=== PATIENT | male | born 1995 | race Caucasian/White ===

== ENCOUNTER 2019-12-26 22:22 | Emergency (ER) | payer OTHER, SELFPAY ==
[2019-12-26 22:48] VITALS: BP 111/84; PULSE 89; RESP 22; TEMP 36.5; O2SAT 100
--- NOTE | 2019-12-26 22:55 | PC.NURSE ---
Patient uncooperative in triage. Patient was attempting to get blood drawn, stating You need to get this out of my arm, I need to throw up and go to the bathroom! Patient moving and pulled needle out of arm.
[2019-12-26 23:13] LABS: Basophils Absolute Auto 0.1 K/mm3 (0.0-0.1); Basophils Percent Auto 0.8 % (0.2-1.2); Eosinophils Absolute Auto 0.3 K/mm3 (0-0.3); Eosinophils Percent Auto 1.8 % (0-4.4); Hematocrit 48.9 % (42.0-52.0); Hemoglobin 16.9 g/dL (14.0-18.0); Immature Granulocyte Absolute 0.22 K/mm3 (0.00-0.031); Immature Granulocyte Percent A 1.3 % (0-0.5); Lymphocytes Absolute Auto 2.72 K/mm3 (0.9-3.2); Mean Corpuscular HGB Conc 34.6 g/dl (32-36); Mean Corpuscular Hemoglobin 30.1 pg (26-34); Mean Corpuscular Volume 87.2 fl (80-100); Mean Platelet Volume 10.1 fl (7.4-10.4); Monocytes Absolute Auto 0.8 K/mm3 (0.1-0.6); Monocytes Percent Auto 4.7 % (2.6-8.5); Neutrophils Absolute Auto 12.8 K/mm3 (1.3-6.7); Neutrophils Percent Auto 75.4 % (45.5-73.1); Platelet Count Result 338 k/mm3 (150-375); Red Blood Count 5.61 M/mm3 (4.6-6.20); Red Cell Distribution Width 12.3 % (11.5-14.5)
[2019-12-26 23:23] LABS: Alanine Aminotransferase 43 U/L (4-50); Albumin Level 5.5 g/dL (3.5-5.1); Alkaline Phosphatase 112 U/L (38-126); Anion Gap 16 mmol/L (8-16); Aspartate Amino Transferase 33 U/L (17-59); Bilirubin,Total 0.9 mg/dL (0.2-1.3); Blood Urea Nitrogen 16 mg/dL (9-20); Calcium 10.6 mg/dL (8.4-10.2); Carbon Dioxide 23 mmol/L (22-30); Chloride 99 mmol/L (98-107); Estimated Glomerular Filt Rate > 60; Glucose 183 mg/dL (75-110); Lipase 53 U/L (23-300); Potassium 3.9 mmol/L (3.4-5.0); Sodium 138 mmol/L (137-145)
[2019-12-27 00:51] LABS: Add Urine Microscopic? YES; Appearance Urine Clear (Clear); Bacteria Urine Trace /hpf; Bilirubin Urine Negative (Negative); Blood Urine Negative (Negative); Color Urine Yellow (Yellow); Glucose Urine UA Negative (Negative); Ketones Urine Negative (Negative); Leukocyte Esterase Ur Negative LEU/UL (Negative); Mucus Urine Heavy /lpf; Nitrate Urine Negative (Negative); Protein Urine 1+ mg/dL (Negative); RBC Urine 0-2 /hpf (0-2); Urobilinogen Urine Negative mg/dL (<2.0); WBC Urine 0-3 /hpf
--- NOTE | 2019-12-27 00:57 | ED.NAVMDI ---
HPI - Nausea/Vomiting/Diarrhea General Chief complaint: Nausea/Vomiting/Diarrhea Stated complaint: vomiting Time Seen by Provider: 12/27/19 00:51 Source: patient Mode of arrival: ambulatory Limitations: no limitations History of Present Illness HPI Narrative: This patient is a 24 year old male who presents for evaluation of nausea and vomiting. He states he woke up 3 hours ago with sudden onset epigastric burning abdominal pain . He developed nausea and vomiting afterwards. HE has been drinking milk which will stop the burning pain briefly. He denies diarrhea or fever. He reports he has had this issue in the past. He states he is given a medication and his symptoms stop. He reports he smokes marijuana daily but he has not smoked much today. Related Data Home Medications Medication Instructions Recorded Confirmed famotidine 20 mg PO BID 12/26/19 sertraline mg 12/26/19 Allergies Allergy/AdvReac Type Severity Reaction Status Date / Time No Known Allergies Allergy Verified 12/26/19 22:57 Review of Systems Review of Systems: All systems reviewed & are unremarkable except as noted in HPI and below Constitutional: Constitutional: Denies chills and Denies fever(s) Respiratory: Respiratory: Denies cough and Denies dyspnea Gastrointestinal: Gastrointestinal: Reports abdominal pain, Denies diarrhea, Reports nausea and Reports vomiting Psychiatric: Psychiatric: Reports anxiety PMFSH Past Medical History Medical History (Updated 12/27/19 @ 03:38 by Marycarmen Reyes MD) Anxiety Surgical History Surgical History (Updated 12/27/19 @ 00:58 by Marycarmen Reyes MD) Hx of appendectomy Social History Social History (Updated 12/27/19 @ 00:58 by Marycarmen Reyes MD) Alcohol intake: current Substance use type: marijuana Last use: daily marijuana Exam Const: General: alert Orientation/consciousness: patient oriented x3 HENMT: Head: atraumatic Face and sinus: face symmetric Throat: posterior oropharynx normal Eyes: EOM: EOMs intact bilaterally Chest: Chest palpation & inspection: normal inspection of the chest Resp: Effort & Inspection: normal respiratory effort and no retractions Auscultation: clear to auscultation bilaterally Cardio: Rate: regular rate Rhythm: regular rhythm Heart sounds: no murmurs GI: GI Palp: Yes Soft to palpation, No Tenderness to palpation present (GI), No Guarding due to palpation present (GI), No Rigid due to palpation and No Hernia present Skin: General skin exam: normal color Rashes: no rashes Neuro: General: patient oriented x3, moves all extremities and CN's II-XI intact bilaterally Extrem: General: normal to inspection Course Reevaluation(s) Reevaluation #1: Patient was given IVF, zofran and protonix. HE states his burning pain has resolved and he has no nausea or vomiting. HE was able to drink conrad mist with crackers without nausea or vomiting. His abdominal exam is still benign. He has no tenderness at all. Leukocytosis is likely stress reaction. Date: 12/27/19 Time: 03:33 Vital Signs Vital signs: Vital Signs Temperature 97.7 F 12/26/19 22:48 Pulse Rate 89 12/26/19 22:48 Respiratory Rate 22 H 12/26/19 22:48 Blood Pressure 111/84 12/26/19 22:48 Pulse Oximetry 100 12/26/19 22:48 Temperature 97.7 F 12/26/19 22:48 Pulse Rate 74 12/27/19 04:00 Respiratory Rate 18 12/27/19 04:00 Blood Pressure 115/76 12/27/19 04:00 Pulse Oximetry 100 12/27/19 04:00 MDM - Nausea/Vomiting/Diarrhea Lab Data Attestation: I reviewed the patient's lab results. Result diagrams: 12/26/19 23:07 12/26/19 23:07 Labs: Lab Results 12/26/19 12/26/19 12/27/19 Range/Units 23:07 23:07 00:31 WBC 17.0 H (4.5-10.0) K/mm3 RBC 5.61 (4.6-6.20) M/mm3 Hgb 16.9 (14.0-18.0) g/dL Hct 48.9 (42.0-52.0) % MCV 87.2 (80-100) fl MCH 30.1 (26-34) pg MCHC 34.6 (32-36)
[2019-12-27] MEDS: LACTATED RINGERS 1,000 ML 999 ML IV CONT (01:08)
[2019-12-27] MEDS: PANTOPRAZOLE SODIUM IV 40 MG VIAL IV PUSH (01:09)
[2019-12-27] MEDS: ONDANSETRON INJ 4 MG/2 ML VIAL IV PUSH (01:09)
[2019-12-27 02:01] VITALS: BP 112/68; PULSE 74; RESP 16; O2SAT 98
[2019-12-27 04:00] VITALS: BP 115/76; PULSE 74; RESP 18; O2SAT 100
== END 2019-12-27 04:00 | disposition home or self-care (01) ==
PROVIDERS: Emergency Medicine; Emergency Provider General Practice; PCP Physician Assistant
DX: K29.70 Gastritis, unspecified, without bleeding (principal); F41.9 Anxiety disorder, unspecified
CPT/HCPCS: 36415; 80053; 81001; 83690; 85025; 96361; 96374; 96375; 99284; C9113; J2405; J7120

== ENCOUNTER 2021-01-16 12:10 | Emergency (ER) | payer SELFPAY ==
[2021-01-16 12:17] VITALS: BP 128/73; PULSE 87; RESP 19; TEMP 36.3; O2SAT 98
[2021-01-16] MEDS: ONDANSETRON INJ 4 MG/2 ML VIAL IV PUSH (12:39)
[2021-01-16] MEDS: SODIUM CHLORIDE 0.9% IV 1,000 ML 999 ML IV CONT (12:40)
[2021-01-16 12:50] LABS: Basophils Absolute Auto 0.1 K/mm3 (0.0-0.1); Basophils Percent Auto 0.6 % (0.2-1.2); Eosinophils Absolute Auto 0.2 K/mm3 (0-0.3); Eosinophils Percent Auto 1.5 % (0-4.4); Hematocrit 43.7 % (42.0-52.0); Hemoglobin 14.9 g/dL (14.0-18.0); Immature Granulocyte Absolute 0.07 K/mm3 (0.00-0.031); Immature Granulocyte Percent A 0.6 % (0-0.5); Lymphocytes Absolute Auto 0.96 K/mm3 (0.9-3.2); Lymphocytes Percent Auto 8.9 % (18.3-44.2); Mean Corpuscular HGB Conc 34.1 g/dl (32-36); Mean Corpuscular Hemoglobin 30.3 pg (26-34); Mean Platelet Volume 10.3 fl (7.4-10.4); Monocytes Absolute Auto 0.5 K/mm3 (0.1-0.6); Neutrophils Percent Auto 83.4 % (45.5-73.1); Platelet Count Result 250 k/mm3 (150-375); Red Blood Count 4.91 M/mm3 (4.6-6.20); White Blood Count 10.8 K/mm3 (4.5-10.0)
[2021-01-16 13:00] LABS: Alanine Aminotransferase 40 U/L (4-50); Albumin Level 5.3 g/dL (3.5-5.1); Alkaline Phosphatase 72 U/L (38-126); Anion Gap 11 mmol/L (8-16); Aspartate Amino Transferase 31 U/L (17-59); Bilirubin,Total 0.9 mg/dL (0.2-1.3); Blood Urea Nitrogen 11 mg/dL (9-20); Calcium 10.1 mg/dL (8.4-10.2); Carbon Dioxide 28 mmol/L (22-30); Chloride 102 mmol/L (98-107); Estimated CRCL calculation 129 ml/min; Estimated Glomerular Filt Rate > 60; Glucose 108 mg/dL (65-110); Lipase 62 U/L (23-300); Sodium 141 mmol/L (137-145)
--- NOTE | 2021-01-16 14:23 | ED.GENADULT ---
HPI - General Adult General Chief complaint: Nausea/Vomiting/Diarrhea Stated complaint: nausea/vomiting Time Seen by Provider: 01/16/21 12:28 Source: patient Mode of arrival: ambulatory Limitations: no limitations History of Present Illness HPI narrative: Patient with history for further nausea and vomiting presents with chief complaint of nausea that began on Sunday vomiting diarrhea. Patient states evaluated by his primary care provider in the past and she believes that he has CHS due to his frequent marijuana usage. Patient denies any fevers, chills, abdominal pain, persistent diarrhea or constipation. Patient states that he would not stop smoking marijuana as it helps with his anxiety. Patient denies any pain at this time. Related Data Home Medications Medication Instructions Recorded Confirmed famotidine 20 mg PO BID 12/26/19 sertraline mg 12/26/19 Allergies Allergy/AdvReac Type Severity Reaction Status Date / Time No Known Allergies Allergy Verified 12/26/19 22:57 Review of Systems Review of Systems: CONSTITUTIONAL: Denies fever, chills, or sweats. EYES: Denies visual changes, redness, or discharge. ENT: Denies rhinorrhea, congestion, sore throat, or otalgia. CARDIOVASCULAR: Denies chest pain, palpitations, or edema. RESPIRATORY: Denies cough or dyspnea. GASTROINTESTINAL: Reports nausea and vomiting denies abdominal pain or diarrhea. GENITOURINARY: Denies dysuria or hematuria. SKIN: Denies rash or itching. MUSCULOSKELETAL: Denies back pain, joint pain, or myalgia. NEUROLOGIC: Denies headache, numbness, dizziness, or weakness. PSYCHIATRIC: Denies anxiety or depression. PMFSH Past Medical History Medical History (Updated 01/16/21 @ 14:44 by Yenifer Tarango PA-C) Anxiety Surgical History Surgical History (Updated 12/27/19 @ 00:58 by Marycarmen Reyes MD) Hx of appendectomy Social History Social History (Updated 12/27/19 @ 00:58 by Marycarmen Reyes MD) Alcohol intake: current Substance use type: marijuana Last use: daily marijuana Exam Narrative: GENERAL: Well-appearing, well-nourished, and in no acute distress. Nontoxic in appearance. HEAD: Normocephalic, atraumatic. EYES: PERRLA and EOMI. CHEST: Clear to auscultation. No respiratory distress. No wheezes rales or rhonchi HEART: Regular rate and rhythm. No murmur heard. Normal peripheral pulses. ABDOMEN: Soft, nontender to palpation, nondistended, normal active bowel sounds. EXTREMITIES: Normal range of motion. No edema. SKIN: Warm, dry, no rash. NEURO: No focal deficits. Alert and oriented x3. PSYCH: Normal mood and affect. Course Vital Signs Vital signs: Vital Signs Temperature 97.3 F L 01/16/21 12:17 Pulse Rate 87 01/16/21 12:17 Respiratory Rate 19 01/16/21 12:17 Blood Pressure 128/73 01/16/21 12:17 Pulse Oximetry 98 01/16/21 12:17 Temperature 97.3 F L 01/16/21 12:17 Pulse Rate 81 01/16/21 15:45 Respiratory Rate 19 01/16/21 15:45 Blood Pressure 131/76 01/16/21 15:45 Pulse Oximetry 99 01/16/21 15:45 Medical Decision Making MDM Narrative Medical decision making narrative: Patient has not had any vomiting. Does not have abdominal pain. He is resting comfortably. CT was not obtained patient does not have any abdominal tenderness on exam, persistent vomiting or localizable discomfort. Patient blood work also appears appropriate. He has been instructed to follow up with PCP or GI for further investigation into his symptoms. Return to emergency department if he develops any localized abdominal pain or any other worsening or emergent symptoms. Patient has been instructed to cease marijuana usage as it may be a possible trigger to his symptoms. Vital Signs Vital Signs: Vital Signs Temperature 97.3 F L 01/16/21 12:17 Pulse Rate 87 01/16/21 12:17 Respiratory Rate 19 01/16/21 12:17 Blood Pressure 128/73 01/16/21 12:17 Pulse Oximetry 98 01/16/21 12:17 Temperature 97
[2021-01-16 14:51] LABS: Add Urine Microscopic? YES; Appearance Urine Clear (Clear); Bacteria Urine Trace /hpf; Bilirubin Urine Negative (Negative); Blood Urine Negative (Negative); Color Urine Yellow (Yellow); Glucose Urine UA Negative (Negative); Ketones Urine Negative (Negative); Leukocyte Esterase Ur Negative LEU/UL (Negative); Mucus Urine Few /lpf; Nitrate Urine Negative (Negative); Protein Urine 1+ mg/dL (Negative); RBC Urine 0-2 /hpf (0-2); Specific Grav Ur 1.025 (1.001-1.035); Urobilinogen Urine Negative mg/dL (<2.0); WBC Urine 0-3 /hpf
[2021-01-16 15:45] VITALS: BP 131/76; PULSE 81; RESP 19; O2SAT 99
== END 2021-01-16 14:54 | disposition home or self-care (01) ==
PROVIDERS: Physician Assistant; Emergency Provider Emergency Medicine; PCP Physician Assistant
DX: R11.2 Nausea with vomiting, unspecified (principal); F12.90 Cannabis use, unspecified, uncomplicated; F41.9 Anxiety disorder, unspecified
CPT/HCPCS: 36415; 80053; 81001; 83690; 85025; 96361; 96374; 99284; J2405; J7030

== ENCOUNTER 2021-03-20 19:32 | Emergency (ER) | payer SELFPAY ==
[2021-03-20 20:04] VITALS: BP 147/81; PULSE 107; RESP 18; TEMP 36.1; O2SAT 98
--- NOTE | 2021-03-20 20:23 | ED.GENADULT ---
HPI - General Adult General Chief complaint: Alcohol Stated complaint: Alcohol intoxication, vomiting Time Seen by Provider: 03/20/21 20:10 History of Present Illness HPI narrative: Patient with 5-year-old gentleman who presents the emergency department with chief complaint of alcohol intoxication and vomiting. Patient reports he drank a fair amount of alcohol today and reports that he still feels nauseated at this point. Patient denies suicidal or homicidal ideation reports that he has had some symptoms at night of potential sleep apnea and reports that he has mentioned this to his primary care physician Related Data Home Medications Medication Instructions Recorded Confirmed famotidine 20 mg PO BID 12/26/19 sertraline mg 12/26/19 Allergies Allergy/AdvReac Type Severity Reaction Status Date / Time No Known Allergies Allergy Verified 12/26/19 22:57 Review of Systems Review of Systems: A 10 system review of systems was completed on the patient and is negative except for what is stated in the HPI. Nursing and ancillary documentation was reviewed. PMFSH Past Medical History Medical History Anxiety Surgical History Surgical History Hx of appendectomy Social History Social History Alcohol intake: current Substance use type: marijuana Last use: daily marijuana Exam Narrative: GENERAL: Well-appearing, well-nourished, and in no acute distress. HEAD: Normocephalic, atraumatic. EYES: PERRLA and EOMI. ENT: Nares clear, no rhinorrhea or epistaxis. Mucous membranes moist. NECK: Supple. CHEST: Clear to auscultation. No respiratory distress. HEART: Regular rate and rhythm. No murmur heard. Normal peripheral pulses. ABDOMEN: Soft, nontender, nondistended, normal active bowel sounds. EXTREMITIES: Normal range of motion. No edema. SKIN: Warm, dry, no rash. NEURO: No focal deficits. Alert and oriented x3. PSYCH: Normal mood and affect. Course Course Emergency Course: Patient's girlfriend showed up walks in a Vital Signs Vital signs: Vital Signs Temperature 36.1 C L 03/20/21 20:04 Pulse Rate 107 H 03/20/21 20:04 Respiratory Rate 18 03/20/21 20:04 Blood Pressure 147/81 H 03/20/21 20:04 Pulse Oximetry 98 03/20/21 20:04 Temperature 36.1 C L 03/20/21 20:04 Pulse Rate 107 H 03/20/21 20:04 Respiratory Rate 18 03/20/21 20:04 Blood Pressure 147/81 H 03/20/21 20:04 Pulse Oximetry 98 03/20/21 20:04 Medical Decision Making Vital Signs Vital Signs: Vital Signs Temperature 36.1 C L 03/20/21 20:04 Pulse Rate 107 H 03/20/21 20:04 Respiratory Rate 18 03/20/21 20:04 Blood Pressure 147/81 H 03/20/21 20:04 Pulse Oximetry 98 03/20/21 20:04 Temperature 36.1 C L 03/20/21 20:04 Pulse Rate 107 H 03/20/21 20:04 Respiratory Rate 18 03/20/21 20:04 Blood Pressure 147/81 H 03/20/21 20:04 Pulse Oximetry 98 03/20/21 20:04 Lab Data Result diagrams: 03/20/21 21:08 03/20/21 21:08 Labs: Lab Results 03/20/21 03/20/21 03/20/21 Range/Units 21:08 21:08 21:08 WBC 14.7 H (4.5-10.0) K/mm3 RBC 5.22 (4.6-6.20) M/mm3 Hgb 15.8 (14.0-18.0) g/dL Hct 45.9 (42.0-52.0) % MCV 87.9 (80-100) fl MCH 30.3 (26-34) pg MCHC 34.4 (32-36) g/dl RDW 12.6 (11.5-14.5) % Plt Count 289 (150-375) k/mm3 MPV 10.2 (7.4-10.4) fl Immature Gran % (Auto) 3.8 H (0-0.5) % Neut % (Auto) 69.5 (45.5-73.1) % Lymph % (Auto) 17.4 L (18.3-44.2) % Reynolds % (Auto) 5.1 (2.6-8.5) % Eos % (Auto) 3.1 (0-4.4) % Baso % (Auto) 1.1 (0.2-1.2) % Lymph # (Auto) 2.56 (0.9-3.2) K/mm3 Reynolds # (Auto) 0.8 H (0.1-0.6) K/mm3 Eos # (Auto) 0.5 H (0-0.3) K/mm3 Baso # (Auto) 0.2 H (0.0-0.1) K/mm3 Abs Immat Gr
[2021-03-20] MEDS: ONDANSETRON INJ 4 MG/2 ML VIAL IV PUSH (20:55)
[2021-03-20] MEDS: SODIUM CHLORIDE 0.9% IV 1,000 ML 999 ML IV CONT (20:55)
[2021-03-20 21:13] LABS: Basophils Absolute Auto 0.2 K/mm3 (0.0-0.1); Basophils Percent Auto 1.1 % (0.2-1.2); Eosinophils Absolute Auto 0.5 K/mm3 (0-0.3); Eosinophils Percent Auto 3.1 % (0-4.4); Hematocrit 45.9 % (42.0-52.0); Hemoglobin 15.8 g/dL (14.0-18.0); Immature Granulocyte Absolute 0.56 K/mm3 (0.00-0.031); Immature Granulocyte Percent A 3.8 % (0-0.5); Lymphocytes Absolute Auto 2.56 K/mm3 (0.9-3.2); Lymphocytes Percent Auto 17.4 % (18.3-44.2); Mean Corpuscular HGB Conc 34.4 g/dl (32-36); Mean Corpuscular Hemoglobin 30.3 pg (26-34); Mean Corpuscular Volume 87.9 fl (80-100); Mean Platelet Volume 10.2 fl (7.4-10.4); Monocytes Absolute Auto 0.8 K/mm3 (0.1-0.6); Monocytes Percent Auto 5.1 % (2.6-8.5); Neutrophils Absolute Auto 10.2 K/mm3 (1.3-6.7); Neutrophils Percent Auto 69.5 % (45.5-73.1); Platelet Count Result 289 k/mm3 (150-375); Red Blood Count 5.22 M/mm3 (4.6-6.20); Red Cell Distribution Width 12.6 % (11.5-14.5); White Blood Count 14.7 K/mm3 (4.5-10.0)
[2021-03-20 21:22] LABS: Ethanol 222 mg/dL (<10)
[2021-03-20 21:23] LABS: Alanine Aminotransferase 95 U/L (4-50); Albumin Level 5.1 g/dL (3.5-5.1); Alkaline Phosphatase 83 U/L (38-126); Anion Gap 15 mmol/L (8-16); Aspartate Amino Transferase 49 U/L (17-59); Bilirubin,Total 0.4 mg/dL (0.2-1.3); Blood Urea Nitrogen 13 mg/dL (9-20); Calcium 9.5 mg/dL (8.4-10.2); Carbon Dioxide 23 mmol/L (22-30); Chloride 104 mmol/L (98-107); Estimated CRCL calculation 106 ml/min; Estimated Glomerular Filt Rate > 60; Glucose 118 mg/dL (65-110); Lipase 38 U/L (23-300); Sodium 142 mmol/L (137-145)
--- NOTE | 2021-03-20 22:35 | PC.NURSE ---
Pt walking out of room as RN passes. Rn asked pt and girlfriend if they need any help. Pt states I am ready to leave. Pt states I took my Iv out and threw it away . Rn asked pt to wait in the room for discharge paperwork from the MD she states he will. Pt noted to leave room after Rn left the area. Pt walking with no difficulty or help needed. Pt left with girlfriend who will be driving me home per pt.
== END 2021-03-20 22:38 | disposition home or self-care (01) ==
PROVIDERS: Emergency Provider Emergency Medicine; PCP Physician Assistant
DX: F10.120 Alcohol abuse with intoxication, uncomplicated (principal); Y90.7 Blood alcohol level of 200-239 mg/100 ml; F41.9 Anxiety disorder, unspecified
CPT/HCPCS: 36415; 80053; 80307; 83690; 85025; 96361; 96374; 99284; J2405; J7030

== ENCOUNTER 2021-04-04 06:40 | Emergency (ER) | payer OTHER, SELFPAY ==
[2021-04-04 06:43] VITALS: BP 137/89; PULSE 82; RESP 18; TEMP 36; O2SAT 97
[2021-04-04] MEDS: ONDANSETRON INJ 4 MG/2 ML VIAL IV PUSH (07:52)
[2021-04-04] MEDS: SODIUM CHLORIDE 0.9% IV 1,000 ML 999 ML IV CONT (07:52)
[2021-04-04] MEDS: LOPERAMIDE HCL 2 MG CAPSULE 4 MG PO (07:53)
--- NOTE | 2021-04-04 08:02 | ED.NAVMDI ---
HPI - Nausea/Vomiting/Diarrhea General Chief complaint: Nausea/Vomiting/Diarrhea Stated complaint: abdominal pain Time Seen by Provider: 04/04/21 07:05 Source: patient Mode of arrival: ambulatory Limitations: no limitations History of Present Illness HPI Narrative: Patient is a 25-year-old male complaining of nausea, vomiting, diarrhea and epigastric discomfort that started 6 hours prior to arrival. Patient describes his vomitus is nonbilious nonbloody. Patient describes his diarrhea as loose watery, nonbloody. Patient states that his discomfort is worse when he vomits. Denies any chest pain, shortness of breath, fever or chills. Related Data Home Medications Medication Instructions Recorded Confirmed famotidine 20 mg PO BID 12/26/19 sertraline mg 12/26/19 Allergies Allergy/AdvReac Type Severity Reaction Status Date / Time No Known Allergies Allergy Verified 12/26/19 22:57 Review of Systems Review of Systems: All systems reviewed & are unremarkable except as noted in HPI and below Constitutional: Constitutional: Denies body ache(s), Denies chills, Denies excessive sweating, Denies fatigue, Denies fever(s), Denies headache(s), Denies lethargy, Denies malaise, Denies weakness and Denies weight loss Eyes: Eyes: Denies blurry vision, Denies change in vision and Denies loss of vision ENT: Denies dizziness, Denies ear discharge, Denies headache(s), Denies lip swelling, Denies epistaxis, Denies nasal congestion, Denies neck pain, Denies throat swelling and Denies tongue swelling Cardiovascular: Cardiovascular: Denies chest pain, Denies chest pain at rest, Denies chest pain with activity, Denies diaphoresis, Denies rapid heart rate, Denies edema, Denies irregular heart rhythm, Denies lightheadedness, Denies palpitations, Denies dyspnea and Denies dyspnea on exertion Respiratory: Respiratory: Denies chest congestion, Denies cough, Denies hemoptysis, Denies dyspnea and Denies dyspnea on exertion Gastrointestinal: Gastrointestinal: Denies melena, Denies hematochezia and Denies hematemesis Musculoskeletal: Musculoskeletal: Denies abnormal gait, Denies deformity, Denies joint swelling, Denies limited range of motion, Denies neck pain and Denies numbness Neurologic: Denies Abnormal speech present, Denies abnormal gait, Denies confusion, Denies dizziness, Denies headache(s), Denies focal weakness, Denies loss of vision, Denies numbness, Denies Other visual disturbances, Denies Sensory deficit (Neuro) and Denies weakness Psychiatric: Psychiatric: Denies confusion, Denies depression, Denies auditory hallucinations, Denies homicidal ideation and Denies suicidal ideation Endocrine: Endocrine: Denies cold intolerance, Denies excessive sweating, Denies fatigue, Denies heat intolerance and Denies palpitations Hematologic/Lymphatic: Hematologic/Lymphatic: Denies easy bleeding and Denies easy bruising Allergic/Immunologic: Allergic/Immunologic: Denies lip swelling, Denies throat swelling and Denies tongue swelling PMFSH Past Medical History Medical History Anxiety Surgical History Surgical History Hx of appendectomy Social History Social History Alcohol intake: current Substance use type: marijuana Last use: daily marijuana Exam Const: General: cooperative, healthy appearing, comfortable, no acute distress, well developed, alert and awake; No confusion Orientation/consciousness: oriented to person, oriented to place, oriented to time, patient oriented x3 and No confusion Limitations: no limitations HENMT: Head: normal to inspection, normocephalic and atraumatic Ears: hearing grossly normal bilaterally, TM normal on the right and TM normal on the left General nose exam: Normal external nose present, Normal nares present and No nasal discharge present Fa
[2021-04-04 08:08] LABS: Basophils Absolute Auto 0.1 K/mm3 (0.0-0.1); Basophils Percent Auto 0.8 % (0.2-1.2); Eosinophils Absolute Auto 0.4 K/mm3 (0-0.3); Eosinophils Percent Auto 3.7 % (0-4.4); Hematocrit 43.9 % (42.0-52.0); Hemoglobin 14.9 g/dL (14.0-18.0); Immature Granulocyte Absolute 0.22 K/mm3 (0.00-0.031); Lymphocytes Absolute Auto 2.16 K/mm3 (0.9-3.2); Mean Corpuscular HGB Conc 33.9 g/dl (32-36); Mean Corpuscular Hemoglobin 30.1 pg (26-34); Mean Corpuscular Volume 88.7 fl (80-100); Mean Platelet Volume 10.5 fl (7.4-10.4); Monocytes Absolute Auto 0.5 K/mm3 (0.1-0.6); Monocytes Percent Auto 4.9 % (2.6-8.5); Neutrophils Absolute Auto 7.4 K/mm3 (1.3-6.7); Neutrophils Percent Auto 68.6 % (45.5-73.1); Platelet Count Result 257 k/mm3 (150-375); Red Blood Count 4.95 M/mm3 (4.6-6.20); Red Cell Distribution Width 12.4 % (11.5-14.5); White Blood Count 10.8 K/mm3 (4.5-10.0)
[2021-04-04 08:21] LABS: Alanine Aminotransferase 61 U/L (4-50); Albumin Level 4.9 g/dL (3.5-5.1); Alkaline Phosphatase 73 U/L (38-126); Anion Gap 12 mmol/L (8-16); Aspartate Amino Transferase 33 U/L (17-59); Bilirubin,Total 0.4 mg/dL (0.2-1.3); Blood Urea Nitrogen 13 mg/dL (9-20); Calcium 10.2 mg/dL (8.4-10.2); Carbon Dioxide 26 mmol/L (22-30); Chloride 101 mmol/L (98-107); Estimated CRCL calculation 137 ml/min; Estimated Glomerular Filt Rate > 60; Glucose 113 mg/dL (65-110); Potassium 4.2 mmol/L (3.4-5.0); Sodium 139 mmol/L (137-145)
== END 2021-04-04 09:45 | disposition home or self-care (01) ==
PROVIDERS: Emergency Provider Emergency Medicine; PCP Physician Assistant
DX: K52.9 Noninfective gastroenteritis and colitis, unspecified (principal)
CPT/HCPCS: 36415; 80053; 85025; 96361; 96374; 99284; A9270; J2405; J7030

== ENCOUNTER 2021-11-23 00:17 | Emergency (ER) | payer OTHER, SELFPAY ==
[2021-11-23 00:17] VITALS: BP 136/98; PULSE 106; RESP 16; TEMP 36.8; O2SAT 99
--- NOTE | 2021-11-23 00:35 | PC.NURSE ---
PT STATES HE IS GOING OUT TO CAR TO TALK TO GIRLFRIEND AND WILL BE BACK
--- NOTE | 2021-11-23 01:20 | PC.NURSE ---
PT NOT IN WAITING ROOM WHEN CALLED.
--- NOTE | 2021-11-23 01:38 | PC.NURSE ---
PT HASN'T RETURNED TO THE WAITING ROOM. LWBS.
--- NOTE | 2021-11-23 01:39 | PC.NURSE ---
PT HASN'T RETURNED INTO THE ED. NO ANSWER WHEN CALLED FOR ROOM PLACEMENT
== END 2021-11-23 01:59 | disposition left against medical advice (07) ==
LOC: ANHED 02:02
PROVIDERS: PCP Physician Assistant
DX: R50.9 Fever, unspecified (principal); Z28.310 Unvaccinated for COVID-19
CPT/HCPCS: 99199

== ENCOUNTER 2023-05-09 23:11 | Emergency (ER) | payer OTHER, SELFPAY ==
[2023-05-09 23:27] VITALS: BP 167/80; PULSE 100; RESP 24; TEMP 36.6; O2SAT 97
[2023-05-09 23:31] VITALS: O2SAT 97
[2023-05-09] MEDS: LORazepam INJ (*CRX) 2 MG/ML VIAL 0.5 MG IV PUSH (23:45)
[2023-05-09] MEDS: HYDROmorphone HCL INJ (*CRX) 1 MG/ML SYR 0.5 MG IV PUSH (23:49)
--- NOTE | 2023-05-10 00:07 | PC.NURSE ---
EDP Dr. Anais RUBIO 8mg zofran IVP for treatment of nausea. Order read back to provider and used closed loop communication.
[2023-05-10] MEDS: ONDANSETRON INJ 4 MG/2 ML VIAL 8 MG IV PUSH (00:08)
--- NOTE | 2023-05-10 00:18 | ED.GENADULT ---
HPI - General Adult General Chief complaint: Head Injury Stated complaint: lockjaw Time Seen by Provider: 05/10/23 00:18 History of Present Illness HPI narrative: This is a 27-year-old male presenting with jaw dislocation. Patient said he yawned really bad and then he could not close his mouth. No trauma. No other injuries. No ear pain or loss of hearing. Related Data Home Medications Medication Instructions Recorded Confirmed famotidine 20 mg tablet 20 mg PO BID 12/26/19 sertraline 100 mg tablet mg 12/26/19 Allergies Allergy/AdvReac Type Severity Reaction Status Date / Time No Known Allergies Allergy Verified 05/09/23 23:31 [facility] Past Medical History Medical History Anxiety Surgical History Surgical History Hx of appendectomy Social History Social History (System 04/13/21 @ 07:46 by Pilar Hawley) Alcohol intake: current Substance use type: marijuana Last use: daily marijuana Exam Narrative: APPEARANCE: No apparent distress. Head: patient is sitting with his jaw open, unable to close it, ear exam normal EYES: EOMI, NOSE: Atraumatic NECK: Trachea midline RESPIRATORY: No increased rate of breathing CARDIOVASCULAR: RRR, ABDOMINAL: Non-distended MUSCULOSKELETAl: No obvious deformities NEURO: Alert. Moving 4/4 extremities SKIN:: Warm, dry. Normal color PSYCHIATRIC: Normal affect Course Vital Signs Vital signs: Vital Signs Temperature 97.8 F 05/09/23 23:27 Pulse Rate 100 05/09/23 23:27 Respiratory Rate 24 H 05/09/23 23:27 Blood Pressure 167/80 H 05/09/23 23:27 Pulse Oximetry 97 05/09/23 23:27 Oxygen Delivery Room Air 05/09/23 23:27 Temperature 97.8 F 05/09/23 23:27 Pulse Rate 100 05/09/23 23:27 Respiratory Rate 24 H 05/09/23 23:27 Blood Pressure 167/80 H 05/09/23 23:27 Pulse Oximetry 97 05/09/23 23:31 Oxygen Delivery Room Air 05/09/23 23:31 Procedures Jaw Reduction Reduction #1: Jaw Reduction Date: 05/10/23 Time Out Performed: Yes Pre-Treatment Medications Used: opioids and benzodiazepines Technique used: other (external manipulation) Reduction successful: Yes Patient Tolerated Procedure: well Complications: none Medical Decision Making MDM Narrative Medical decision making narrative: -Course: 27-year-old male presenting with jaw dislocation. Reduced using external jaw manipulation. Patient discharged primary care follow-up. Instructed to rest his jaw. He develops recurrent jaw dislocation she may need an omfs referral. -DDX includes but is not limited to: Jaw dislocation, tetanus -Co-morbidities complicating care: none -Procedures: jaw dislocation -Interventions: 0.5 mg Ativan, 0.5 mg Dilaudid -Shared decision making / Disposition: discharge Vital Signs Vital Signs: Vital Signs Temperature 97.8 F 05/09/23 23:27 Pulse Rate 100 05/09/23 23:27 Respiratory Rate 24 H 05/09/23 23:27 Blood Pressure 167/80 H 05/09/23 23:27 Pulse Oximetry 97 05/09/23 23:27 Oxygen Delivery Room Air 05/09/23 23:27 Temperature 97.8 F 05/09/23 23:27 Pulse Rate 100 05/09/23 23:27 Respiratory Rate 24 H 05/09/23 23:27 Blood Pressure 167/80 H 05/09/23 23:27 Pulse Oximetry 97 05/09/23 23:31 Oxygen Delivery Room Air 05/09/23 23:31 Discharge Plan Discharge Clinical Impression: Dislocation closed, jaw Patient Disposition: Home, Self-Care Condition: Stable Instructions: Antibiotic Form, Jaw Dislocation (ED) Additional Instructions: please to not open her mouth wiping the next day or 2. Not in any hard foods. Follow-up with your primary care physician. If you develop recurrent jaw dislocations he may need a referral to a specialist. Prescriptions: New ibuprofen 800 mg tablet 800 mg PO TID PRN (Reason: pain) 7 Days Q
[2023-05-10 00:59] VITALS: BP 137/85; PULSE 90; RESP 18; O2SAT 99
== END 2023-05-10 01:01 | disposition home or self-care (01) ==
PROVIDERS: Emergency Provider Emergency Medicine; PCP Physician Assistant
DX: S03.03XA Dislocation of jaw, bilateral, initial encounter (principal); F41.9 Anxiety disorder, unspecified; X50.9XXA Other and unspecified overexertion or strenuous movements or postures, initial encounter
CPT/HCPCS: 21480; 96374; 96375; 99285; J1170; J2060; J2405

== ENCOUNTER 2023-09-26 04:48 | Emergency (ER) | payer OTHER, SELFPAY ==
--- NOTE | ~2023-09-26 | CT_ITS ---
EXAMINATION: CT abdomen pelvis w con DATE: 09/26/2023 05:51 INDICATION: Abdominal pain. TECHNIQUE: Computed tomography (CT) of the abdomen and pelvis was performed with 100 mL Omnipaque 350 intravenous contrast. Automated exposure control and iterative reconstruction technique were employe d. The dose-length product was 738.05 mGy-cm. COMPARISON: None. FINDINGS: The visualized portions of the lung bases demonstrate mild atelectasis. No pleural effusion . The heart size is normal. No pericardial effusion. The liver, gallbladder, spleen, pancreas, adrena l glands, and kidneys are normal. There are no dilated loops of bowel. The appendix is not visualized . There are no pathologically enlarged lymph nodes. There is no free intraperitoneal fluid. There is a right inguinal hernia containing fat. There is moderate lower lumbar spondylosis. IMPRESSION: 1. Right inguinal hernia containing fat. Reviewed, dictated and finalized at location A.
[2023-09-26 04:53] VITALS: BP 160/96; PULSE 88; RESP 22; TEMP 36.3; O2SAT 100
[2023-09-26 05:07] VITALS: BP 131/77; PULSE 83; RESP 20; O2SAT 96
[2023-09-26 05:09] LABS: Basophils Absolute Auto 0.1 K/mm3 (0.0-0.1); Basophils Percent Auto 0.7 % (0.2-1.2); Eosinophils Absolute Auto 0.5 K/mm3 (0-0.3); Eosinophils Percent Auto 4.8 % (0-4.4); Hematocrit 45.5 % (42.0-52.0); Hemoglobin 15.2 g/dL (14.0-18.0); Immature Granulocyte Percent A 0.9 % (0-0.5); Lymphocytes Absolute Auto 1.94 K/mm3 (0.9-3.2); Lymphocytes Percent Auto 17.2 % (18.3-44.2); Mean Corpuscular HGB Conc 33.4 g/dl (32-36); Mean Corpuscular Hemoglobin 29.2 pg (26-34); Mean Corpuscular Volume 87.5 fl (80-100); Mean Platelet Volume 10.2 fl (7.4-10.4); Monocytes Absolute Auto 0.7 K/mm3 (0.1-0.6); Monocytes Percent Auto 5.9 % (2.6-8.5); Neutrophils Absolute Auto 7.9 K/mm3 (1.3-6.7); Neutrophils Percent Auto 70.5 % (45.5-73.1); Platelet Count Result 253 k/mm3 (150-375); Red Cell Distribution Width 12.9 % (11.5-14.5); White Blood Count 11.3 K/mm3 (4.5-10.0)
[2023-09-26 05:11] LABS: Appearance Urine Clear (Clear); Bilirubin Urine Negative (Negative); Blood Urine Negative (Negative); Color Urine Yellow (Yellow); Glucose Urine UA Negative (Negative); Ketones Urine Negative (Negative); Leukocyte Esterase Ur Negative LEU/UL (Negative); Nitrate Urine Negative (Negative); Protein Urine Negative (Negative); Specific Grav Ur 1.021 (1.001-1.035); pH Urine 6.5 (5.0-9.0)
[2023-09-26 05:12] LABS: Add Urine Microscopic? NO
[2023-09-26 05:19] LABS: Alanine Aminotransferase 41 U/L (6-50); Alkaline Phosphatase 85 U/L (38-126); Anion Gap 9 mmol/L (4-12); Aspartate Amino Transferase 31 U/L (17-59); Bilirubin,Total 0.6 mg/dL (0.2-1.3); Blood Urea Nitrogen 18 mg/dL (9-20); Calcium 9.5 mg/dL (8.4-10.2); Carbon Dioxide 29 mmol/L (22-30); Chloride 102 mmol/L (98-107); Estimated CRCL calculation 102 ml/min; Estimated Glomerular Filt Rate > 60; Glucose 100 mg/dL (65-110); Lipase 51 U/L (23-300); Potassium 3.9 mmol/L (3.4-5.0); Sodium 140 mmol/L (137-145)
[2023-09-26 05:20] LABS: Lactic Acid Reflex 0.6 mmol/L (0.7-2.0)
--- NOTE | 2023-09-26 05:26 | ED.GENADULT ---
HPI - General Adult General Chief complaint: Abdominal Pain Stated complaint: abd pain Time Seen by Provider: 09/26/23 05:14 History of Present Illness HPI narrative: patient is a 28-year-old gentleman who presents emergency department chief complaint of abdominal pain. Patient reports that been having some rectal discomfort for the last few months and reports that he has had some weight loss and states he noticed that he had pain in his rectal area and noticed that he had a black stool. The patient reports some nausea but no vomiting patient reports had a prior appendectomy. Related Data Home Medications Medication Instructions Recorded Confirmed famotidine 20 mg tablet 20 mg PO BID 12/26/19 sertraline 100 mg tablet mg 12/26/19 Allergies Allergy/AdvReac Type Severity Reaction Status Date / Time No Known Allergies Allergy Verified 05/09/23 23:31 Review of Systems Review of Systems: A 10 system review of systems was completed on the patient and is negative except for what is stated in the HPI. Nursing and ancillary documentation was reviewed. [facility] Past Medical History Medical History Anxiety Surgical History Surgical History Hx of appendectomy Social History Social History Alcohol intake: current Substance use type: marijuana Last use: daily marijuana Exam Narrative: GENERAL: Well-appearing, well-nourished, and in no acute distress. HEAD: Normocephalic, atraumatic. EYES: PERRLA and EOMI. ENT: Nares clear, no rhinorrhea or epistaxis. Mucous membranes moist. NECK: Supple. CHEST: Clear to auscultation. No respiratory distress. HEART: Regular rate and rhythm. No murmur heard. Normal peripheral pulses. ABDOMEN: Soft, Mild tenderness to palpation the right side of the abdomen, nondistended, normal active bowel sounds. : Small hemorrhoid present 6 o'clock position stool is guaiac negative EXTREMITIES: Normal range of motion. No edema. SKIN: Warm, dry, no rash. NEURO: No focal deficits. Alert and oriented x3. PSYCH: Normal mood and affect. Course Vital Signs Vital signs: Vital Signs Temperature 36.3 C L 09/26/23 04:53 Pulse Rate 88 09/26/23 04:53 Respiratory Rate 22 H 09/26/23 04:53 Blood Pressure 160/96 H 09/26/23 04:53 Pulse Oximetry 100 09/26/23 04:53 Oxygen Delivery Room Air 09/26/23 04:53 Temperature 36.3 C L 09/26/23 04:53 Pulse Rate 75 09/26/23 05:53 Respiratory Rate 13 09/26/23 05:53 Blood Pressure 139/78 09/26/23 05:53 Pulse Oximetry 99 09/26/23 05:53 Oxygen Delivery Room Air 09/26/23 04:53 Medical Decision Making MDM Narrative Medical decision making narrative: differential diagnosis includes intra-abdominal infection, GI bleed, patient is currently guaiac-negative and has a normal hemoglobin. Patient is not showing signs of a GI bleed. CMP is within normal limits CBC shows white count 11.[address] scan of the abdomen pelvis showed 1. Right inguinal hernia containing fat. Vital Signs Vital Signs: Vital Signs Temperature 36.3 C L 09/26/23 04:53 Pulse Rate 88 09/26/23 04:53 Respiratory Rate 22 H 09/26/23 04:53 Blood Pressure 160/96 H 09/26/23 04:53 Pulse Oximetry 100 09/26/23 04:53 Oxygen Delivery Room Air 09/26/23 04:53 Temperature 36.3 C L 09/26/23 04:53 Pulse Rate 75 09/26/23 05:53 Respiratory Rate 13 09/26/23 05:53 Blood Pressure 139/78 09/26/23 05:53 Pulse Oximetry 99 09/26/23 05:53 Oxygen Delivery Room Air 09/26/23 04:53 Lab Data 09/26/23 05:03 09/26/23 05:03 Labs: Lab Results 09/26/23 Range/Units 05:03 WBC 11.3 H (4.5-10.0) K/mm3 RBC 5.20 (4.6-6.20) M/mm3 Hgb 15.2 (14.0-18.0) g/dL Hct 45.5 (
[2023-09-26] MEDS: ONDANSETRON INJ 4 MG/2 ML VIAL IV PUSH (05:36)
[2023-09-26] MEDS: SODIUM CHLORIDE 0.9% IV 1,000 ML 999 ML IV CONT (05:36)
[2023-09-26 05:53] VITALS: BP 139/78; PULSE 75; RESP 13; O2SAT 99
== END 2023-09-26 06:36 | disposition home or self-care (01) ==
PROVIDERS: Emergency Provider Emergency Medicine
DX: K40.90 Unilateral inguinal hernia, without obstruction or gangrene, not specified as recurrent (principal); F41.9 Anxiety disorder, unspecified; Z79.899 Other long term (current) drug therapy
CPT/HCPCS: 36415; 74177; 80053; 81003; 83605; 83690; 85025; 86850; 86900; 86901; 96361; 96374; 99284; J2405; J7030; Q9967

== ENCOUNTER 2025-01-01 09:45 | Emergency (ER) | payer OTHER, SELFPAY ==
--- NOTE | ~2025-01-01 | XR_ITS ---
EXAMINATION: XR foot LT min 3V, 01/01/2025 10:32 CDT HISTORY: LT LATERAL ANKLE/FOOT PAIN AFTER FALL 1 HR AGO COMPARISON: No comparisons available. Findings: No acute fracture or malalignment. No significant degenerative changes. Soft tissues unremarkable. Impression: No acute fracture or malalignment. Reviewed, dictated and finalized at location A. Impression: No acute fracture or malalignment.
--- NOTE | ~2025-01-01 | XR_ITS ---
EXAMINATION: XR ankle LT min 3V DATE: 01/01/2025 10:41 INDICATION: Fall. TECHNIQUE: 4 images of the left ankle were obtained. COMPARISON: None. FINDINGS: [ No significant degenerative change.] [ No radiographic evidence for an acute fracture or dislocation.] [ No radiopaque foreign body.] [ No sclerotic or destructive bone lesions.] Soft tissue swelling about the left ankle. IMPRESSION: 1. [ No acute bony abnormality identified.] If symptoms persist or worsen consider a short-term follow-up study or additional imaging for further assessment. Reviewed, dictated and finalized at location Q. IMPRESSION: 1. [ No acute bony abnormality identified.] If symptoms persist or worsen consider a short-term follow-up study or addition al imaging for further assessment.
[2025-01-01 10:22] VITALS: BP 129/74; PULSE 93; RESP 18; TEMP 37.2; O2SAT 99
--- NOTE | 2025-01-01 10:23 | ED.GENADULT ---
HPI - General Adult General Chief complaint: Extremity Injury, Lower Stated complaint: L ANKLE INJURY Time Seen by Provider: 01/01/25 10:04 History of Present Illness HPI narrative: Get Conrad is a 29-year-old male who presents today after her rolling his left ankle going down the stairs about an hour prior to arrival. Complaining pain to the lateral ankle and his foot. Denies any other injuries from the incident. Related Data Home Medications ?Medication ?Instructions ?Recorded ?Confirmed ?Last Taken ?Type famotidine 20 mg tablet 20 mg PO BID 12/26/19 Unknown History sertraline 100 mg tablet mg 12/26/19 Unknown History Allergies Allergy/AdvReac Type Severity Reaction Status Date / Time No Known Allergies Allergy Verified 01/01/25 10:25 Review of Systems Review of Systems: All systems reviewed & are unremarkable except as noted in HPI and below PMFSH Past Medical History Medical History Anxiety Surgical History Surgical History Hx of appendectomy Social History Social History Alcohol intake: current Substance use type: marijuana Last use: daily marijuana Course Vital Signs Vital signs: Vital Signs Temperature 37.2 C 01/01/25 10:22 Pulse Rate 93 01/01/25 10:22 Respiratory Rate 18 01/01/25 10:22 Blood Pressure 129/74 01/01/25 10:22 Pulse Oximetry 99 01/01/25 10:22 Oxygen Delivery Room Air 01/01/25 10:22 Temperature 37.2 C 01/01/25 10:22 Pulse Rate 93 01/01/25 10:22 Respiratory Rate 18 01/01/25 10:22 Blood Pressure 129/74 01/01/25 10:22 Pulse Oximetry 99 01/01/25 10:22 Oxygen Delivery Room Air 01/01/25 10:22 Medical Decision Making [facility] Narrative Medical decision making narrative: Patient presented to the ED with complaint of left foot pain after inversion injury. Vitals were within acceptable limits. Physical exam revealed tenderness at left foot, anterior distal aspect, and lateral ankle Based on the patient's history and physical exam, I am concerned for fracture vs sprain. Patient was given 600 mg of ibuprofen and hydrocodone for pain. Ankle and foot xrays were obtained showing Negative for acute fracture PATRICE wrap applied to injured extremity. Patient given strict return precautions if pain is worse or there is poor blood flow to the extremity, and advised to rest the limb and to followup with orthopedics as needed. DISPOSITION: Home FOLLOW UP: Orthopedics CONDITION: Fair FINAL IMPRESSION(S): 1. Left ankle sprain Medical Records Medical records reviewed: Yes I reviewed the external patient's medical records. Vital Signs Vital Signs: Vital Signs Temperature 37.2 C 01/01/25 10:22 Pulse Rate 93 01/01/25 10:22 Respiratory Rate 18 01/01/25 10:22 Blood Pressure 129/74 01/01/25 10:22 Pulse Oximetry 99 01/01/25 10:22 Oxygen Delivery Room Air 01/01/25 10:22 Temperature 37.2 C 01/01/25 10:22 Pulse Rate 93 01/01/25 10:22 Respiratory Rate 18 01/01/25 10:22 Blood Pressure 129/74 01/01/25 10:22 Pulse Oximetry 99 01/01/25 10:22 Oxygen Delivery Room Air 01/01/25 10:22 Vitals reviewed by or Imaging Data Radiologist's impression: Impressions Foot X-Ray 01/01/25 10:54 Impression: No acute fracture or malalignment. Ankle X-Ray 01/01/25 10:55 IMPRESSION: 1. [ No acute bony abnormality identified.] If symptoms persist or worsen consider a short-term follow-up study or additional imaging for further assessment. Discharge Plan Discharge Clinical Impression: Ankle sprain and strain Patient Disposition: Home Condition: Stable Instructions: Antibiotic Form, Ankle Sprain (ED), P.R.I.C.E. Treatment (ED) Additional Instructions: Continue to keep your ankle wrapped with Patrice wrap elevate your ankle while at rest ice 20 minutes at a time for the next 48 hours. You may bear weight as tolerated there were no broken bones found under imaging today. With rest this should improve continue to take Tylenol Motrin for the pain at home. If you have continued pain after 7-14 days you may follow-up with orthopedics for further evaluation or your primary care doctor may consider repeat imaging. As always if you develop any new worsening symptoms return to the emergency department. Patient Language: Citizen Of [place] Prescriptions: No Action sertraline 100 mg Tablet famotidine 20 mg Tablet 20 mg PO BID ondansetron HCl [Zofran] 4 mg tablet 4 mg PO Q8H PRN (Reason: nausea and vomiting) Qty: 10 0RF omeprazole magnesium [Prilosec OTC] 20 mg tablet,delayed release (DR/EC) 20 mg PO DAILY Qty: 14 0RF ondansetron HCl [Zofran] 4 mg tablet 4 mg PO Q8H PRN (Reason: nausea and vomiting) Qty: 10 0RF ibuprofen 800 mg tablet 800 mg PO TID PRN (Reason: pain) 7 Days Qty: 21 0RF acetaminophen 500 mg tablet 1,000 mg PO TID PRN (Reason: luisana) 7 Days Qty: 42 0RF Follow-up/Referrals: PHYSICIAN,REAL ESTATE LEGAL ASSISTANT [Primary Care Provider, Internal Medicine] Jarod Braden MD [Physician, Family Practice] - 1 Week Nash Turner MD [Physician, Orthopedics] Stand Alone Forms: Work/School Release IP Time of Disposition: 11:12
[2025-01-01] MEDS: IBUPROFEN 600 MG TABLET PO (10:28)
[2025-01-01] MEDS: HYDROcodone/acetaminophen (*CRX) 5-325 MG TABLET 1 TAB PO (10:29)
--- OUTSIDE RECORDS SUMMARY | 2025-01-01 10:34 | XMS_ITS | Clinical Summary ---
Author Organization [facility] Address [address] [place] [id number] Care Team Providers Care Receiver Stocker Name Role Phone Chelita Piedra MD Primary Care Pro vider Allergies No known active allergies Medications albuterol HFA (Ventolin HFA) 90 mcg/actuation inhalerIndicati ons:Chronic cough Inhale 2 puffs every 4 (four) hours as needed for wheezing or shortness of breath (coughing) 18 g 5 4 Active diclofenac sodium (VOLTAREN) 1 % gelIndications: Costochondritis Apply 2 g topically 4 (four) times a day as needed (chest pain) 20 g 4 Active Active Problems Problem Noted Date Diagnosed Date Annual physical exam 11/05/2023 Assessment & Plan (01/24/2024 11:09 AM CDT): Reviewed PMH & FH Reviewed medications and supplements HCM: orders placed as needed Immunizations Immunization Administration Dates Next Due DTaP 12/20/2016 HPV, Unspecified 10/08/2013,01/15/2013 Influenza, Unspecified 01/24/2024(Deferred: Naty ent Refused) Tdap 12/20/2016 Surgical History Surgery Date Site/Laterality Comments APPENDECTOMY PLASTIC SURGERY face surgeries x2 Medical History Medical History Date Comments TMJ (dislocation of temporomandibular joint) GERD (gastroesophageal reflux disease) Hernia, inguinal Family History Medical History Relation Name Comments Colon cancer Father Cancer Maternal Grandfather Irritable bowel syndrome Mother Relation Name Status Comments Father Maternal Grandfather Mother Alive Social History Tobacco Use Types Packs/Day Years Used Date Smoking Tobacco: Former Cigarettes 0.8 10 2020 Smokeless Tobacco: Never Tobacco Cessation:Counseling Given: Not Answered AUDIT-C Answer Date Recorded Frequency of Alcohol Consumption Not on file 01/24/2024 Q2: How many drinks containi ng alcohol do you have on a typical day when you are drinking? 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 Gender Identity Not on file Sexual Orientation Not on file Obstetrics History Last Filed Vital Signs Vital Sign Reading Time Taken Comments Blood Pressure 120/70 01/24/2024 11:04 AM CDT Pulse 72 01/24/2024 11:04 AM CDT Temperature 36.4 C (97.5 F) 01/24/2024 11:04 AM CDT Respiratory Rate 18 01/24/2024 11:04 AM CDT Oxygen Saturation 98% 01/24/2024 11:04 AM CDT Inhaled Oxygen Concentration - - Weight 94 kg (207 lb 4.8 oz) 01/24/2024 11:04 AM CDT Height 180.3 cm (5' 11) 01/24/2024 11:04 AM CDT Body Mass Index 28.91 01/24/2024 11:04 AM CDT Plan of Treatment Health Maintenance Due Date Last Done Comments Hepatitis C Screening 1997 HPV Vaccines (3 - Male 3-dose series) 12/31/2013 10/08/2013, 01/15/2013 Hepatitis B Screening 08/22/2015 Influenza Vaccine (#1) 2024 Depression Screening 01/23/2025 01/24/2024, 01/24/2024, 11/05/2023, Additional history exists Regular Well Visit/Exam 18-64 01/23/2025 01/24/2024 DTaP/Tdap/Td Vaccine (3 - Td or Tdap) 12/20/2026 12/20/2016, 12/20/2016 Pneumococcal vaccine <65 Aged Out No longer eligible based on patient's age to complete this topic Varicella Vaccines Discontinued [facility] Care Teams Receiver Stocker Relationship Specialty Start Date End Date Chelita Piedra MD [address] [place] [id number] PCP - General Family Medicine 05/21/23
[2025-01-01 11:44] VITALS: BP 122/64; PULSE 84; RESP 16; O2SAT 99
== END 2025-01-01 11:49 | disposition home or self-care (01) ==
PROVIDERS: Emergency Provider Nurse Practitioner Family
DX: S93.402A Sprain of unspecified ligament of left ankle, initial encounter (principal); X50.0XXA Overexertion from strenuous movement or load, initial encounter; F12.90 Cannabis use, unspecified, uncomplicated
CPT/HCPCS: 73610; 73630; 99283; A9270